=== PATIENT | female | born 1975 | race Caucasian/White ===

== ENCOUNTER 2016-09-29 18:22 | Inpatient (IN) ==
[2016-09-29] MEDS ORDERED: 0.9 % Sodium Chloride 1,000 ML IVC ONE (18:39)
[2016-09-29] MEDS ORDERED: *HR* HYDROmorphone (PF) 1 MG/ML SYRINGE IVP ONE ×2 (18:44→20:59)
[2016-09-29] MEDS ORDERED: Ondansetron 4 MG/2 ML VIAL IVP ONE ×2 (18:44→21:00)
--- NOTE | 2016-09-29 18:52 | Emergency Department Note ---
Disposition Clinical Impression: Calculus of kidney UTI (urinary tract infection) Qualifiers: Urinary tract infection type: acute pyelonephritis Qualified Code(s): N10 - Acute pyelonephritis Disposition: Admitted As Inpatient Condition: Good Time of Disposition: 21:06 Abdominal Pain HPI - General Chief Complaint: ED Abdominal Pain Stated Complaint: kidney stone Time Seen by Provider: 09/29/16 18:35 Source: patient Nursing Notes Reviewed: Yes Vital Signs Reviewed: Yes - History of Present Illness HPI Narrative: This is a 41-year-old female with a past medical history of nephrolithiasis, IV drug abuse, and a recent emergency department visit at [facility] for a renal stone. She states that yesterday she started having severe right flank pain that was sharp in nature and radiated to her right lower quadrant. Because of this, she went to the emergency Department [facility]. She states that they told her she had a stone obstructing her ureter that would require urologic intervention. She left AGAINST MEDICAL ADVICE with a prescription for Percocet, Phenergan, and ciprofloxacin. She took one ciprofloxacin in the hospital but did not get any of her other medications filled. She states that she is feeling the exact same and she felt yesterday. Pain Scale: 10 - Related Data Allergies Allergy/AdvReac Type Severity Reaction Status Date / Time Penicillins Allergy Hives Verified 09/29/16 18:25 All systems ED: reviewed and negative except as stated. Constitutional: Denies: fever, chills Cardiovascular: Denies: chest pain, palpitations Respiratory: Denies: cough, dyspnea, wheezes, hemoptysis Gastrointestinal: Reports: abdominal pain, nausea, vomiting Genitourinary: Reports: other (Decreased frequency, currently on menses). Denies: urgency, dysuria Musculoskeletal: Reports: back pain (Right flank) Integumentary: Reports: lesions (Where she picks at her skin) Neurological: Denies: headache, weakness, numbness Abdominal Pain PMH - Past Medical History Medical history: Reports: no medical history - Social History Smoking status: Current every day smoker Alcohol use: Reports: none Drug use: Reports: IV Drug Use Physical Exam This is a 41-year-old female who is pleasant but in obvious discomfort. She is holding her right flank and appears to be writhing around in pain. - General Limitations: no limitations General appearance: alert - Head Head exam: normocephalic - Eye Eye exam: Present: EOMI. Absent: scleral icterus, conjunctival injection - ENT ENT exam: normal oropharynx, mucous membranes dry - Neck Neck exam: Present: trachea midline. Absent: tenderness, meningismus - Chest Chest inspection: Present: symmetric chest wall rise. Absent: tenderness - Respiratory Respiratory exam: Present: wheezes - Cardiovascular Cardiovascular exam: Present: regular rate, normal rhythm, normal heart sounds - Abdominal Exam Abdominal exam: Present: tenderness. Absent: distention, guarding, rebound, rigidity Abdominal tenderness: Present: RLQ - Extremities Exam Extremities exam: Absent: pedal edema - Expanded Lower Extremity Exam Neurovascular/Tendon exam: Present: normal capillary refill - Back Exam Back exam: Present: CVA tenderness (R). Absent: CVA tenderness (L) - Neurological Exam Neurological exam: Present: alert, oriented X3 - Psychiatric Psychiatric exam: Present: anxious - Skin Skin exam: Present: warm, dry, intact, other (There are excoriations on her skin that appear to be from picking.) Course - Reevaluation(s) Reevaluation #1: Still having some pain, right low quadrant tenderness and right CVA tenderness. She is no longer nauseous but still has some pain. Time: 20:20 Vital Signs Temperature 98.6 F 09/29/16 18:23 Pulse Rate 96 09/29/16 18:23 Respiratory Rate 18 09/29/16 18:23 Blood Pressure 119/88 09/29/16 18:23 O2 Sat by Pulse Oximetry 100 09/29/16 18:23 Temperature 98.6 F 09/29/16 18:23 Pulse Rate 87 09/29/16 20:40 Respiratory Rate 16 09/29/16 20:40 Blood Pressure 143/58 09/29/16 20:40 O2 Sat by Pulse Oximetry 97 09/29/16 20:40 Oxygen Delivery Oxygen Delivery Room Air Abdominal Pain - MDM Narrative Medical decision making narrative: This is a 41-year-old female who reports to the emergency department with a chief complaint of having an obstructing ureteral stone as well as a UTI that was diagnosed at [facility] yesterday. On exam, she had right flank pain as well as right lower quadrant abdominal pain. The immediate concern was for an obstructing ureteral stone, pyelonephritis, ectopic , ovarian torsion, psoas abscess, appendicitis. A urinalysis, urine preg, cbc, bmp, CT of the abdomen and pelvis were obtained. Also, Dilaudid was given for analgesia, Zofran for nausea and vomiting, and IV fluids for dehydration. The CT scan obtained revealed a 1.25 cm calculus in the right renal pelvis with associated urethral urothelial thickening and small bubbles of gas within the right renal collecting system suggest inflammation or infection. Urinalysis obtained showed a lot of blood, positive leukocyte esterase and nitrites. Due to the size of the stone, and the positive urinalysis associated with signs of inflammation and infection in the right renal collecting system, I believe it is reasonable to consult urology and to get this patient admitted to the hospital. I spoke with Dr. Lazcano, the on-call urologist the phone. He thought it was reasonable to admit the patient to the hospitalist service and come by and see her in the morning. Abdomen/Pelvis CT 09/29/16 18:46 IMPRESSION: 1.25 cm calculus in the right renal pelvis. Urothelial thickening and small bubbles of gas within the right renal collecting system suggest inflammation and infection. Bubbles of gas within the right renal collecting system may also be secondary to recent urinary tract instrumentation. Clinical correlation is recommended. Cholelithiasis. The gallbladder is contracted. D/ / Deng Marie MD / Deng Marie MD Interpreting Provider: Deng Marie MD - Differential Diagnosis Differential Diagnosis: Likely: calculus of kidney - Medical Records Medical records reviewed: Yes I reviewed the patient's medical records. - Lab Data Lab results reviewed: Yes I reviewed the patient's lab results. Result diagrams: 09/29/16 19:56 09/29/16 19:56 Lab Results 09/29/16 09/29/16 09/29/16 Range/Units 19:56 19:56 20:11 WBC 9.7 (4.3-11.1) K/mcL RBC 5.05 H (3.82-4.97) M/mcL Hgb 14.2 (11.5-15.4) g/dL Hct 43.8 (35.3-44.9) % MCV 86.7 (83.0-100.0) fL MCH 28.1 (28.0-33.3) pg MCHC 32.4 (31.6-35.5) g/dL RDW 13.2 (11.5-14.5) % Plt Count 165 (140-400) K/mcL MPV 12.9 H (9.4-12.4) fL Immature Gran % 0.8 (0-4) % Seg Neutrophils % 61.4 % Lymphocytes % 23.9 % Monocytes % 8.4 % Eosinophils % 4.6 % Basophils % 0.9 % Neutrophils # 5.9 (1.6-8.9) K/mcL Lymphocytes # 2.3 (0.6-4.6) K/mcL Monocytes # 0.8 (0.0-1.3) K/mcL Eosinophils # 0.4 (0.0-0.6) K/mcL Basophils # 0.1 (0.0-0.2) K/mcL Sodium 137 (136-145) mEq/L Potassium 3.7 (3.5-4.5) mEq/L Chloride 107 (98-109) mEq/L Carbon Dioxide 22 (19-29) mEq/L BUN 20 (7-20) mg/dL Creatinine 0.74 (0.57-1.11) mg/dL Est GFR ( Amer) > 60 (> 60) Est GFR (Non-Af Amer) > 60 (> 60) BUN/Creatinine Ratio 27 H (6-26) Glucose 108 H (70-99) mg/dL Calculated Osmolality 287 (280-300) Calcium 9.7 (8.6-10.8) mg/dL Urine Color Dark Yellow (Yellow) Urine Clarity Turbid A (Clear) Urine pH 6.0 (5.0-8.0) pH Units Ur Specific [place] 1.029 H (1.010-1.025) Urine Protein >=300 H (Neg-Trace) mg/dL Urine Glucose (UA) Normal (Normal) mg/dL Urine Ketones Trace H (Negative) mg/dL Urine Blood Large H (Negative) Urine Nitrite Positive A (Negative) Urine Bilirubin Small H (Negative) Urine Urobilinogen Normal (Normal) mg/dL Ur Leukocyte Esterase Large H (Negative) Urine Microscopic RBC TNTC H (0-3) per hpf Urine Microscopic WBC TNTC H (0-3) per hpf Ur Squamous Epith Cells Many H (None-Few) per lpf Urine Bacteria Many H (None-Few) per hpf Hyaline Casts None Seen (None-Few) per lpf Urine Mucus Many H (Few) Ur Culture Indicated? YES A (NO) Urine Test (Negative) 09/29/16 Range/Units 20:11 WBC (4.3-11.1) K/mcL RBC (3.82-4.97) M/mcL Hgb (11.5-15.4) g/dL Hct (35.3-44.9) % MCV (83.0-100.0) fL MCH (28.0-33.3) pg MCHC (31.6-35.5) g/dL RDW (11.5-14.5) % Plt Count (140-400) K/mcL MPV (9.4-12.4) fL Immature Gran % (0-4) % Seg Neutrophils % % Lymphocytes % % Monocytes % % Eosinophils % % Basophils % % Neutrophils # (1.6-8.9) K/mcL Lymphocytes # (0.6-4.6) K/mcL Monocytes # (0.0-1.3) K/mcL Eosinophils # (0.0-0.6) K/mcL Basophils # (0.0-0.2) K/mcL Sodium (136-145) mEq/L Potassium (3.5-4.5) mEq/L Chloride (98-109) mEq/L Carbon Dioxide (19-29) mEq/L BUN (7-20) mg/dL Creatinine (0.57-1.11) mg/dL Est GFR ( Amer) (> 60) Est GFR (Non-Af Amer) (> 60) BUN/Creatinine Ratio (6-26) Glucose (70-99) mg/dL Calculated Osmolality (280-300) Calcium (8.6-10.8) mg/dL Urine Color (Yellow) Urine Clarity (Clear) Urine pH (5.0-8.0) pH Units Ur Specific [place] (1.010-1.025) Urine Protein (Neg-Trace) mg/dL Urine Glucose (UA) (Normal) mg/dL Urine Ketones (Negative) mg/dL Urine Blood (Negative) Urine Nitrite (Negative) Urine Bilirubin (Negative) Urine Urobilinogen (Normal) mg/dL Ur Leukocyte Esterase (Negative) Urine Microscopic RBC (0-3) per hpf Urine Microscopic WBC (0-3) per hpf Ur Squamous Epith Cells (None-Few) per lpf Urine Bacteria (None-Few) per hpf Hyaline Casts (None-Few) per lpf Urine Mucus (Few) Ur Culture Indicated? (NO) Urine Test Negative (Negative) - Radiology Data Radiology results reviewed: Yes I reviewed the patient's radiology results. Abdomen/Pelvis CT 09/29/16 18:46 IMPRESSION: 1.25 cm calculus in the right renal pelvis. Urothelial thickening and small bubbles of gas within the right renal collecting system suggest inflammation and infection. Bubbles of gas within the right renal collecting system may also be secondary to recent urinary tract instrumentation. Clinical correlation is recommended. Cholelithiasis. The gallbladder is contracted. D/ / Deng Marie MD / Deng Marie MD Interpreting Provider: Deng Marie MD Attestation Statement - Attestation Attestation: I personally interviewed and examined this patient and my medical decision- making was reviewed with the Resident Physician, Dr. Gonzalez. I agree with the documented findings, disposition and treatment plan as described except to the extent set forth below. Patient is a 41-year-old white female, history of IV drug abuse, who presents to the emergency department today with ongoing right flank pain radiating around to her right side. Patient reports that she was seen at [facility] last night and was diagnosed with a kidney stone on the right as well as an infection. Patient reports that they wanted to admit her to the hospital but due to childcare issues she had to leave AGAINST MEDICAL ADVICE and was prescribed antibiotics which she has taken one dose of ciprofloxacin. Patient returns because of gradual worsening pain in her right flank area. Patient denies any fevers or chills, no nausea vomiting, and is hemodynamically stable on arrival. I agree with patient's physical exam findings as documented. We initially requested records from [facility] in regards to her ER visit and CT findings. While waiting for those we repeated labs and imaging and administered pain control. Patient has what appears to be a large right renal stone with emphysematous changes to the right renal collecting system. She also has urinary tract infection present in the urine. Patient has had no vomiting and her blood pressures remained stable throughout her ED course. She has had no recent instrumentation and no prior kidney stones. We spoke with urology initially Dr. Alvarez is covering and agreed to consult on the patient and requested admission by the hospitalist. Case was discussed with the hospitalist on duty who accepted the patient for admission. Blood and urine cultures have been sent to patient's been started on IV Cipro here and remains hemodynamically stable. Patient is comfortable with admission and will be transferred to floor when bed is available.
[2016-09-29 20:27] LABS: Basophils # 0.1 K/mcL (0.0-0.2); Basophils % 0.9 %; Eosinophils # 0.4 K/mcL (0.0-0.6); Eosinophils % 4.6 %; Hematocrit 43.8 % (35.3-44.9); Hemoglobin 14.2 g/dL (11.5-15.4); Immature Granulocytes % 0.8 % (0-4); Lymphocytes # 2.3 K/mcL (0.6-4.6); Lymphocytes % 23.9 %; Mean Corpuscular HGB Conc 32.4 g/dL (31.6-35.5); Mean Corpuscular Hemoglobin 28.1 pg (28.0-33.3); Mean Corpuscular Volume 86.7 fL (83.0-100.0); Mean Platelet Volume 12.9 fL (9.4-12.4); Monocytes # 0.8 K/mcL (0.0-1.3); Monocytes % 8.4 %; Neutrophils # 5.9 K/mcL (1.6-8.9); Platelet Count 165 K/mcL (140-400); Red Blood Count 5.05 M/mcL (3.82-4.97); Red Cell Distribution Width 13.2 % (11.5-14.5); Segmented Neutrophils % 61.4 %
[2016-09-29 20:30] LABS: Bilirubin,Urine Small (Negative); Blood,Urine Large (Negative); Clarity,Urine Turbid (Clear); Glucose,Urine (UA) Normal (Normal); Ketones,Urine Trace mg/dL (Negative); Leukocyte Esterase,Urine Large (Negative); Nitrite,Urine Positive (Negative); Protein,Urine >=300 mg/dL (Neg-Trace); Specific Gravity,Urine 1.029 (1.010-1.025); Urobilinogen,Urine Normal (Normal)
[2016-09-29 20:32] LABS: Bacteria,Urine Many per hpf (None-Few); RBC,Urine TNTC per hpf (0-3); Squamous Epithelial Cell,Urine Many per lpf (None-Few); WBC,Urine TNTC per hpf (0-3)
[2016-09-29 20:35] LABS: Color,Urine Dark Yellow (Yellow)
[2016-09-29 20:39] LABS: BUN/Creatinine Ratio 27 (6-26); Blood Urea Nitrogen 20 mg/dL (7-20); Calcium 9.7 mg/dL (8.6-10.8); Carbon Dioxide 22 mEq/L (19-29); Chloride 107 mEq/L (98-109); Glucose 108 mg/dL (70-99); Osmolality,Calculated 287 (280-300); Potassium 3.7 mEq/L (3.5-4.5); Sodium 137 mEq/L (136-145); eGFR For African Americans > 60 (> 60); eGFR For Non-African Americans > 60 (> 60)
[2016-09-29 20:49] LABS: Hyaline Casts,Urine None Seen per lpf (None-Few); Mucus,Urine Many (Few)
[2016-09-29] MEDS ORDERED: Ketorolac 30 MG/ML VIAL IVP PRN (22:10)
[2016-09-29] MEDS ORDERED: Naloxone 0.4 MG/ML INJ IVP PRN (22:10)
[2016-09-29] MEDS ORDERED: Ondansetron 4 MG/2 ML VIAL IVP PRN (22:10)
[2016-09-29] MEDS ORDERED: *HR* Promethazine 25 MG/ML VIAL IVP PRN (22:32)
--- NOTE | 2016-09-29 22:41 | Internal Med History&Physical ---
<Shanita Best M - Last Filed: 09/29/16 22:58> Date of Encounter: 09/29/16 Time of Encounter: 22:37 Assessment and Plan (1) UTI (urinary tract infection) Current visit: Yes Status: Acute Patient presents with right flank pain. UA consistent with UTI. CT of the abdomen and pelvis shows a 1.25 cm stone in the right renal pelvis, and characteristics suggesting inflammation and infection. Cipro IV piggyback twice a day IV fluids 0.9 normal saline at [address] Walls of urology consult and will see patient tomorrow. Qualifiers: Urinary tract infection type: acute pyelonephritis Qualified Code(s): N10 - Acute pyelonephritis (2) Nausea and vomiting Current visit: Yes Status: Acute Patient had nausea and vomiting since yesterday, likely associated with her pyelonephritis. IV fluids 0.9 normal saline at 125 mL per hour Zofran and Phenergan when necessary for nausea Nothing by mouth Qualifiers: Vomiting type: unspecified Vomiting Intractability: non-intractable Qualified Code(s): R11.2 - Nausea with vomiting, unspecified (3) Flank pain Current visit: Yes Status: Acute Patient with right flank pain radiating around to her abdomen, likely secondary to obstructive stone and right renal pelvis, and pyelonephritis. Toradol and Dilaudid when necessary for pain Narcan when necessary for respiratory depression (4) Calculus of kidney Current visit: Yes Status: Acute Patient presenting with right flank pain, CT of abdomen and pelvis shows a 1.25 cm stone in the right renal pelvis. IV fluids 0.9 normal saline at [address] Walls of urology consult and will see patient tomorrow Nothing by mouth (5) DVT prophylaxis Current visit: Yes Status: Acute anti-embolic stockings. Internal Medicine - H&P: HPI Chief complaint: flank pain Admitted From: Emergency Dept Plans for Post Hospital Care: Home History of present illness: Ms. Roblero is a 41 year old female with no significant medical history presented to the emergency department today with complaints of right flank pain , nausea and vomiting. The patient was reportedly seen at [facility] yesterday first similar symptoms, and was diagnosed with a kidney stone, but left AGAINST MEDICAL ADVICE. Patient reports that she first noticed aching on the right side 4 days ago, the aching progressed and is now sharp pain radiating from her right flank around to the front her front abdomen, which she describes as severe. Nausea and vomiting started yesterday, she has a poor appetite as well. Patient denies any chest pain, palpitations, shortness of breath, headache, lightheadedness, fever, chills, or sweats. She denies any dysuria, but does describe hesitancy. Evaluation in the emergency department revealed normal white blood cell count of 9.7. CT of abdomen and pelvis showed a 1.25 cm stone in the right renal pelvis, and characteristics suggesting inflammation and infection. Her UA was grossly positive for infection. The ED spoke with Dr. Lazcano of Urology, who agrees to see patient. On exam, patient alert and oriented, in no acute distress. Lungs are clear bilaterally to auscultation heart has regular rate and rhythm. Abdomen is soft, with positive bowel sounds , diffusely tender more so on the right, and with right CVA tenderness. Past Med Surg Social Fam HX - Past Medical History Medical history: kidney stones - Past Surgical History Surgical History: non-contributory - Social History Smoking Status: Current every day smoker Smokeless Tobacco Status: No Alcohol use: none Drug use: IV Drug Use - Family History Mother Living Status: Still Living Hx Family Cancer: Yes Father Living Status: Still Living Hx Family Cardiac Disorders: Yes Internal Medicine - H&P: Meds Allergies Penicillins Allergy (Verified 09/29/16 18:25) Hives All Systems PM: A 10-system review of systems was performed and is negative for pertinent findings except as documented above in the HPI. - Constitutional Constitutional: no chills, no fever(s), no night sweats - EENT Eyes: no change in vision, no discharge, no pain, no photophobia Ears: no ear discharge, no ear pain, no tinnitus Nose, mouth and throat: no dysphagia, no nasal discharge, no neck pain, no sore throat - Cardiovascular Cardiovascular ROS IM: no chest pain, no diaphoresis, no dyspnea, no lightheadedness, no palpitations, no syncope - Respiratory Respiratory: no cough, no dyspnea, no wheezing, no excessive phlegm production - Gastrointestinal Gastrointestinal: abdominal pain, nausea, vomiting, no diarrhea, no hematemesis , no hematochezia, no melena - Genitourinary Genitourinary: difficulty urinating, urinary hesitancy, no change in urinary stream, no dysuria, no flank pain, no hematuria - Musculoskeletal Musculoskeletal ROS IM: no numbness, no tingling - Integumentary Integumentary IM: no rash, no unusual bruising - Neurological Neurological ROS: no confusion, no convulsions, no focal weakness, no numbness, no tingling, no tremor(s) - Hematologic/Lymphatic Hematologic/Lymphatic: no easy bruising - Constitutional Vitals: Temp Pulse Resp BP Pulse Ox 98.6 F 75 16 107/70 97 09/29/16 18:23 09/29/16 21:52 09/29/16 22:03 09/29/16 22:03 09/29/16 21:52 General appearance: Present: A&O X 3, pleasant, no acute distress - Head Head exam: Present: atraumatic, normocephalic - Eye Eye exam: Present: PERRL, conjuntiva pink, sclera anicteric Pupils: Present: PERRL - Neck Neck exam general surgery: Present: supple, trachea midline. Absent: lymphadenopathy - Respiratory Respiratory exam: Present: CTAB. Absent: accessory muscle use, rales, rhonchi, wheezes - Cardiovascular Cardiovascular exam: Present: RRR, +S1, +S2. Absent: diastolic murmur, gallop, rubs, systolic murmur - GI/Abdominal GI/Abdominal exam: Present: normal bowel sounds, soft, tenderness, no peritoneal signs. Absent: distended - Extremities Exam Extremities exam: Present: warm, radial pulses palpable and symetrical. Absent : calf tenderness, cyanotic, pedal edema - Back Exam Back exam: Present: CVA tenderness (R) - Neurological Exam Neurological exam: Present: CN II-XII intact, oriented X3, no focal deficits. Absent: facial droop, speech deficit - Skin Skin exam: Present: dry, intact Internal Med - H&P Results - Labs CBC & Chem 7: 09/29/16 19:56 09/29/16 19:56 Labs: All Lab Results (24 Hours) 09/29/16 09/29/16 09/29/16 Range/Units 19:56 19:56 20:11 WBC 9.7 (4.3-11.1) K/mcL RBC 5.05 H (3.82-4.97) M/mcL Hgb 14.2 (11.5-15.4) g/dL Hct 43.8 (35.3-44.9) % MCV 86.7 (83.0-100.0) fL MCH 28.1 (28.0-33.3) pg MCHC 32.4 (31.6-35.5) g/dL RDW 13.2 (11.5-14.5) % Plt Count 165 (140-400) K/mcL MPV 12.9 H (9.4-12.4) fL Immature Gran % 0.8 (0-4) % Seg Neutrophils % 61.4 % Lymphocytes % 23.9 % Monocytes % 8.4 % Eosinophils % 4.6 % Basophils % 0.9 % Neutrophils # 5.9 (1.6-8.9) K/mcL Lymphocytes # 2.3 (0.6-4.6) K/mcL Monocytes # 0.8 (0.0-1.3) K/mcL Eosinophils # 0.4 (0.0-0.6) K/mcL Basophils # 0.1 (0.0-0.2) K/mcL Sodium 137 (136-145) mEq/L Potassium 3.7 (3.5-4.5) mEq/L Chloride 107 (98-109) mEq/L Carbon Dioxide 22 (19-29) mEq/L BUN 20 (7-20) mg/dL Creatinine 0.74 (0.57-1.11) mg/dL Est GFR ( Amer) > 60 (> 60) Est GFR (Non-Af Amer) > 60 (> 60) BUN/Creatinine Ratio 27 H (6-26) Glucose 108 H (70-99) mg/dL Calculated Osmolality 287 (280-300) Calcium 9.7 (8.6-10.8) mg/dL Urine Color Dark Yellow (Yellow) Urine Clarity Turbid A (Clear) Urine pH 6.0 (5.0-8.0) pH Units Ur Specific [place] 1.029 H (1.010-1.025) Urine Protein >=300 H (Neg-Trace) mg/dL Urine Glucose (UA) Normal (Normal) mg/dL Urine Ketones Trace H (Negative) mg/dL Urine Blood Large H (Negative) Urine Nitrite Positive A (Negative) Urine Bilirubin Small H (Negative) Urine Urobilinogen Normal (Normal) mg/dL Ur Leukocyte Esterase Large H (Negative) Urine Microscopic RBC TNTC H (0-3) per hpf Urine Microscopic WBC TNTC H (0-3) per hpf Ur Squamous Epith Cells Many H (None-Few) per lpf Urine Bacteria Many H (None-Few) per hpf Hyaline Casts None Seen (None-Few) per lpf Urine Mucus Many H (Few) Ur Culture Indicated? YES A (NO) Urine Test (Negative) 09/29/16 Range/Units 20:11 WBC (4.3-11.1) K/mcL RBC (3.82-4.97) M/mcL Hgb (11.5-15.4) g/dL Hct (35.3-44.9) % MCV (83.0-100.0) fL MCH (28.0-33.3) pg MCHC (31.6-35.5) g/dL RDW (11.5-14.5) % Plt Count (140-400) K/mcL MPV (9.4-12.4) fL Immature Gran % (0-4) % Seg Neutrophils % % Lymphocytes % % Monocytes % % Eosinophils % % Basophils % % Neutrophils # (1.6-8.9) K/mcL Lymphocytes # (0.6-4.6) K/mcL Monocytes # (0.0-1.3) K/mcL Eosinophils # (0.0-0.6) K/mcL Basophils # (0.0-0.2) K/mcL Sodium (136-145) mEq/L Potassium (3.5-4.5) mEq/L Chloride (98-109) mEq/L Carbon Dioxide (19-29) mEq/L BUN (7-20) mg/dL Creatinine (0.57-1.11) mg/dL Est GFR ( Amer) (> 60) Est GFR (Non-Af Amer) (> 60) BUN/Creatinine Ratio (6-26) Glucose (70-99) mg/dL Calculated Osmolality (280-300) Calcium (8.6-10.8) mg/dL Urine Color (Yellow) Urine Clarity (Clear) Urine pH (5.0-8.0) pH Units Ur Specific [place] (1.010-1.025) Urine Protein (Neg-Trace) mg/dL Urine Glucose (UA) (Normal) mg/dL Urine Ketones (Negative) mg/dL Urine Blood (Negative) Urine Nitrite (Negative) Urine Bilirubin (Negative) Urine Urobilinogen (Normal) mg/dL Ur Leukocyte Esterase (Negative) Urine Microscopic RBC (0-3) per hpf Urine Microscopic WBC (0-3) per hpf Ur Squamous Epith Cells (None-Few) per lpf Urine Bacteria (None-Few) per hpf Hyaline Casts (None-Few) per lpf Urine Mucus (Few) Ur Culture Indicated? (NO) Urine Test Negative (Negative) - Diagnostic Studies CT scan - abdomen Additional comments: Abdomen/Pelvis CT 09/29/16 18:46 IMPRESSION: 1.25 cm calculus in the right renal pelvis. Urothelial thickening and small bubbles of gas within the right renal collecting system suggest inflammation and infection. Bubbles of gas within the right renal collecting system may also be secondary to recent urinary tract instrumentation. Clinical correlation is recommended. Cholelithiasis. The gallbladder is contracted. D/ / Deng Marie MD / Deng Marie MD Interpreting Provider: Deng Marie MD <Audie Paniagua - Last Filed: 09/30/16 01:12> Date of Encounter: 09/30/16 Internal Medicine - H&P: HPI History of present illness: Ms. Roblero is a 41 year old female All Systems PM: A 10-system review of systems was performed and is negative for pertinent findings except as documented above in the HPI. - Constitutional Vitals: Temp Pulse Resp BP Pulse Ox 98.1 F 63 15 120/75 97 09/29/16 23:17 09/29/16 23:17 09/29/16 23:17 09/29/16 23:17 09/29/16 23:17 Internal Med - H&P Results - Labs CBC & Chem 7: 09/29/16 19:56 09/29/16 19:56 - Attending Attestation I have seen and examined the patient. I reviewed the orders and the note. Patient is a 41-year-old female with past history of renal stone, anxiety and depression. She presents to the ED with right flank pain. Symptoms first started about 4 days ago. Gradually worsened. She states it is sharp pain radiating from right flank to the front of her abdomen down to her groin. Also has associated nausea and vomiting. She was initially admitted at [facility] for the same complaints, but she left AMA. Patient denies chest pain or palpitations or shortness of breath or headache. Denies fever or chills or sweats. Initial evaluation in the ED revealed 1.2 cm stone in the right renal pelvis. UA is positive for leukocyte Esterase and nitrites. Dr. Walls urology has been consulted from the ED. Patient is being admitted for renal calculus and UTI. She will be on IV fluids and IV ciprofloxacin. Patient will be kept nothing by mouth and will be on IV Zofran and IV Dilaudid when necessary. On examination patient is awake and alert. Not in any distress. She is in obvious discomfort due to the pain. Able to provide all history. Family member at bedside. She states she needs more pain medication to help with the pain. No other acute complaints. Patient states she has a history of IV drug use, last being about 10 months ago. She also states she has history of depression and anxiety and has not been on any meds for a long time. Patient has been explained about her condition and plan of care. She understood and agreed. No unanswered questions. CODE STATUS full code. Heart rate 63, blood pressure 120/75, O2 sat 97% on room air. Heart S1-S2 positive no murmurs or rubs. Lungs bilateral good air entry with no wheeze or crackles. Abdomen soft with right-sided tenderness and right CVA tenderness, no guarding. Extremities all pulses strong and regular with no edema.
[2016-09-29] MEDS: 0.9 % Sodium Chloride 1,000 ML IVC SCH (23:27)
[2016-09-30] MEDS ORDERED: *HR* Heparin 5,000 UNIT/ML VIAL SQ SCH
[2016-09-30] MEDS: Nicotine 21 MG PATCH.TD24 TD SCH ×3 (03:02→08:26)
[2016-09-30 03:44] LABS: Basophils # 0.1 K/mcL (0.0-0.2); Basophils % 0.8 %; Eosinophils # 0.4 K/mcL (0.0-0.6); Eosinophils % 4.9 %; Hematocrit 36.7 % (35.3-44.9); Immature Granulocytes % 0.5 % (0-4); Immature Platelets 9.1 % (1.1-6.1); Lymphocytes # 2.6 K/mcL (0.6-4.6); Lymphocytes % 33.2 %; Mean Corpuscular Hemoglobin 29.2 pg (28.0-33.3); Mean Corpuscular Volume 88.4 fL (83.0-100.0); Mean Platelet Volume 12.6 fL (9.4-12.4); Monocytes # 0.7 K/mcL (0.0-1.3); Monocytes % 8.4 %; Platelet Count 147 K/mcL (140-400); Red Blood Count 4.15 M/mcL (3.82-4.97); Red Cell Distribution Width 13.3 % (11.5-14.5); Segmented Neutrophils % 52.2 %
[2016-09-30 03:48] LABS: Hemoglobin 12.1 g/dL (11.5-15.4)
[2016-09-30 03:54] LABS: BUN/Creatinine Ratio 27 (6-26); Blood Urea Nitrogen 20 mg/dL (7-20); Calcium 8.4 mg/dL (8.6-10.8); Carbon Dioxide 21 mEq/L (19-29); Chloride 109 mEq/L (98-109); Glucose 81 mg/dL (70-99); Osmolality,Calculated 286 (280-300); Potassium 3.6 mEq/L (3.5-4.5); Sodium 137 mEq/L (136-145); eGFR For African Americans > 60 (> 60); eGFR For Non-African Americans > 60 (> 60)
[2016-09-30] MEDS: *HR* HYDROmorphone (PF) 1 MG/ML SYRINGE IVP PRN ×2 (04:41→08:55)
--- NOTE | 2016-09-30 08:00 | Urology - Consult Note ---
Date of Encounter: 09/30/16 Time of Encounter: 07:58 - Assessment and Plan (1) Calculus of kidney Current Visit: Yes Status: Acute Assessment and plan: Patient will be taken to the operating room today for cystoscopy and right ureteral stent placement. (2) Pyelonephritis Current Visit: Yes Status: Acute Assessment and plan: Patient's urinalysis appears to have an infection. She does not appear systemically sick at this point. Continue IV antibiotics at this time Urology CN:HPI Consult date: 09/30/16 Reason for consult Urology: Hydronephrosis Requesting physician: Audie Paniagua History of present illness: Callie is a 41-year-old female with a history of recent trip to outside hospital on Friday evening secondary to severe right-sided flank pain where she was found to have a 1.2 cm right UPJ stone with air in the collecting system. Patient left AMA from that facility after being accepted as a transfer to [place]. Patient then returned to our ER yesterday secondary to severe right- sided flank pain. CT scan was repeated which confirmed the same above findings. Patient has not had any fevers or elevation in WBC count. Patient is a former IV drug abuser with poor IV access. She states her last heroin use was 10 months ago. Past Med Surg Social Fam HX - Past Medical History Medical history: kidney stones Psychiatric history: anxiety, depression - Past Surgical History Surgical History: non-contributory - Social History Smoking Status: Current every day smoker Packs per day: 1 Smokeless Tobacco Status: No Alcohol use: none Drug use: IV Drug Use - Family History Mother Living Status: Still Living Hx Family Cancer: Yes Father Living Status: Still Living Hx Family Cardiac Disorders: Yes Medications and Allergies Allergies Penicillins Allergy (Verified 09/29/16 18:25) Hives Review of Systems - Constitutional no fever(s) - EENT Nose, mouth and throat: no dizziness - Cardiovascular no chest pain - Respiratory no cough - Gastrointestinal no abdominal pain - Musculoskeletal back pain - Integumentary no erythema - Neurological no confusion - Psychiatric no anxiety - Hematologic/Lymphatic no easy bleeding - Allergic/Immunologic no throat swelling Exam Initial Vital Signs Temp Pulse Resp BP Pulse Ox 98.6 F 96 18 119/88 100 09/29/16 18:23 09/29/16 18:23 09/29/16 18:23 09/29/16 18:23 09/29/16 18:23 - General physical appearance Present: well developed - Eyes Present: PERRL - ENT Present: normal nares - Neck Present: no masses - Respiratory Present: normal respiratory effort - Cardiovascular Cardiovascular exam IM: RRR - Abdomen Abdomen: Present: soft - Integumentary Present: no rash - Neurologic Present: normal coordination - Musculoskeletal Present: normal gait Urology Results - Labs 09/30/16 02:53 09/30/16 02:53 Abnormal lab results MPV 12.6 fL (9.4-12.4) H 09/30/16 02:53 Immature Plt Fraction 9.1 % (1.1-6.1) H 09/30/16 02:53 BUN/Creatinine Ratio 27 (6-26) H 09/30/16 02:53 Calcium 8.4 mg/dL (8.6-10.8) L 09/30/16 02:53 Urine Clarity Turbid (Clear) A 09/29/16 20:11 Ur Specific [place] 1.029 (1.010-1.025) H 09/29/16 20:11 Urine Protein >=300 mg/dL (Neg-Trace) H 09/29/16 20:11 Urine Ketones Trace mg/dL (Negative) H 09/29/16 20:11 Urine Blood Large (Negative) H 09/29/16 20:11 Urine Nitrite Positive (Negative) A 09/29/16 20:11 Urine Bilirubin Small (Negative) H 09/29/16 20:11 Ur Leukocyte Esterase Large (Negative) H 09/29/16 20:11 Urine Microscopic RBC TNTC per hpf (0-3) H 09/29/16 20:11 Urine Microscopic WBC TNTC per hpf (0-3) H 09/29/16 20:11 Ur Squamous Epith Cells Many per lpf (None-Few) H 09/29/16 20:11 Urine Bacteria Many per hpf (None-Few) H 09/29/16 20:11 Urine Mucus Many (Few) H 09/29/16 20:11 Ur Culture Indicated? YES (NO) A 09/29/16 20:11 Diabetes panel 09/30/16 Range/Units 02:53 Sodium 137 (136-145) mEq/L Potassium 3.6 (3.5-4.5) mEq/L Chloride 109 (98-109) mEq/L Carbon Dioxide 21 (19-29) mEq/L BUN 20 (7-20) mg/dL Creatinine 0.74 (0.57-1.11) mg/dL Glucose 81 (70-99) mg/dL Calcium 8.4 L (8.6-10.8) mg/dL Calcium panel 09/30/16 Range/Units 02:53 Calcium 8.4 L (8.6-10.8) mg/dL Pituitary panel 09/30/16 Range/Units 02:53 Sodium 137 (136-145) mEq/L Potassium 3.6 (3.5-4.5) mEq/L Chloride 109 (98-109) mEq/L Carbon Dioxide 21 (19-29) mEq/L BUN 20 (7-20) mg/dL Creatinine 0.74 (0.57-1.11) mg/dL Glucose 81 (70-99) mg/dL Calcium 8.4 L (8.6-10.8) mg/dL Adrenal panel 09/30/16 Range/Units 02:53 Sodium 137 (136-145) mEq/L Potassium 3.6 (3.5-4.5) mEq/L Chloride 109 (98-109) mEq/L Carbon Dioxide 21 (19-29) mEq/L BUN 20 (7-20) mg/dL Creatinine 0.74 (0.57-1.11) mg/dL Glucose 81 (70-99) mg/dL Calcium 8.4 L (8.6-10.8) mg/dL All other labs normal. - Imaging CT scan - abdomen: image reviewed CT scan - pelvis: image reviewed Consult Discharge Plan - Plan Referrals: NO,PCP [Primary Care Provider] -
[2016-09-30] MEDS: 0.9 % Sodium Chloride 1,000 ML IVC SCH (08:27)
--- NOTE | 2016-09-30 09:32 | Internal Med Progress Note ---
Date of Encounter: 09/30/16 Time of Encounter: 09:30 - Subjective Interval history: Patient was standing on fixing her hair she states that she has constant right CVA tenderness. She denies fever, chills, Liya, dyspnea, wheezing, nausea, vomiting, abdominal pain, hematuria, dysuria. She states that the pain medication is not very helpful much. - Constitutional Vitals: Temp Pulse Resp BP Pulse Ox 97.5 F L 56 18 109/73 98 09/30/16 08:37 09/30/16 04:46 09/30/16 08:37 09/30/16 08:37 09/30/16 08:37 General appearance: Present: A&O X 3, pleasant, no acute distress Exam: Gen.: Vitals noted. No acute distress. AAOx3 HEENT: PERRL/EOMI, oropharynx clear, Normocephalic, atraumatic Neck: Supple. No adenopathy. Cardiac: RRR, no murmur, +S1/S2 Pulmonary: CTA bilaterally, no wheezes, rales or rhonchi, equal chest expansion Abdomen: soft, nontender, Bowel sounds noted, no guarding Back: right CVA tenderness MSK: ROM intact, no joint swelling noted Extremities: no BLE edema, nontender calf, no cyanosis or clubbing Neuro: A&Ox3, moves all extremities, no focal deficits Psych: Appropriate mood and behavior Internal Medicine: Result - Labs CBC & Chem 7: 09/30/16 02:53 09/30/16 02:53 Labs: Short CBC 09/30/16 Range/Units 02:53 WBC 7.7 (4.3-11.1) K/mcL Hgb 12.1 D (11.5-15.4) g/dL Hct 36.7 (35.3-44.9) % Plt Count 147 (140-400) K/mcL Neutrophils # 4.0 (1.6-8.9) K/mcL BMP 09/30/16 02:53 Sodium 137 Potassium 3.6 Chloride 109 Carbon Dioxide 21 BUN 20 Creatinine 0.74 Glucose 81 Calcium 8.4 L - VTE Documentation of Mechanical Device: Graduated compression elastic hosiery Consult Discharge Plan - Plan Referrals: NO,PCP [Primary Care Provider] -
--- NOTE | 2016-09-30 09:52 | Anesthesia Evaluation PreOp ---
Date of Encounter: 09/30/16 Time of Encounter: 09:35 - Past History Planned Operation: C&P/Stent Cardiac History: Denies any Significant Hx Pulmonary History: Smoker (1ppd x 25yrs) ASSOCIATE PROFESSOR OF BIOSTATISTICS History: Denies Any Significant HX Other Medical History: Hepatic (Probable Hep C [Undiagnosed and Untreat]) Anesthesia History: No Prior Anesthetic Complications, Past Anesthesia (Removal of Tubal ) Test: Negative Alcohol Use: none Drug use: IV Drug Use (Heroin - last use reportedly "10 months ago") Medications and Allergies Allergies Penicillins Allergy (Verified 09/29/16 18:25) Hives - Meds/Allergy Pre-op Review Medications Reviewed: Yes Allergies Reviewed: Yes Beta Blockers on Current Med List: No Anesthesia Results - Labs 09/30/16 02:53 09/30/16 02:53 Laboratory Tests 09/29/16 09/29/16 09/30/16 20:11 20:11 02:53 WBC 7.7 Hgb 12.1 D Hct 36.7 Plt Count 147 Sodium Potassium Chloride BUN Est GFR (Non-Af Amer) POC Glucose Urine Nitrite Positive A Ur Leukocyte Esterase Large H Urine Microscopic RBC TNTC H Urine Microscopic WBC TNTC H Ur Squamous Epith Cells Many H Urine Bacteria Many H Urine Test Negative 09/30/16 09/30/16 02:53 04:46 WBC Hgb Hct Plt Count Sodium 137 Potassium 3.6 Chloride 109 BUN 20 Est GFR (Non-Af Amer) > 60 POC Glucose 87 Urine Nitrite Ur Leukocyte Esterase Urine Microscopic RBC Urine Microscopic WBC Ur Squamous Epith Cells Urine Bacteria Urine Test Anesthesia Exam Vital Signs Temp Pulse Resp BP Pulse Ox 09/30/16 08:37 97.5 F L 18 109/73 98 09/30/16 04:46 98.3 F 56 14 119/74 98 09/29/16 23:17 98.1 F 63 15 120/75 97 09/29/16 22:03 16 107/70 09/29/16 21:52 75 18 108/66 97 09/29/16 20:40 87 16 143/58 97 09/29/16 19:47 85 16 120/80 97 09/29/16 18:23 98.6 F 96 18 119/88 100 Intake and Output 09/29/16 09/30/16 09/30/16 23:59 07:59 15:59 Intake Total 0 / 0 0 / 0 1000 / 1000 Output Total 0 / 0 350 / 350 300 / 300 Balance 0 / 0 -350 / -350 700 / 700 Intake: IV Fluids 1000 / 1000 0.9 % Sodium Chloride 1, 1000 / 1000 000 ML @ 125 mls/hr IVC . Q8H ROSALVA Rx#:[id number] Oral 0 / 0 0 / 0 Output: Urine 0 / 0 350 / 350 300 / 300 Other: Weight 68.039 kg 66.2 kg Blood Glucose* 87 Patient Weight 09/30/16 23:59 Weight 66.2 kg Height: 5'7" Weight: 145# BMI = 23 NPO (# of Hours): MNoc - HEENT Pupil (Motor): Pupils equal, EOMI Mallampati: II Teeth: Normal Oral Opening: Greater than 3 - ASSOCIATE PROFESSOR OF BIOSTATISTICS LOC: Oriented ASSOCIATE PROFESSOR OF BIOSTATISTICS Motor: Normal RUE, Normal LUE, Normal RLE, Normal LLE, Normal Face ASSOCIATE PROFESSOR OF BIOSTATISTICS Sensory: Normal: RUE, LUE, RLE, LLE, Face - Cardiac Rhythm: Regular Murmur: None - Pulmonary Breath Sounds: bilateral Clear Respiratory Effort: Symmetrical Anesthesia Assess/Plan ASA Score: 3 Anes Supervising Prov Stmt: Pt seen/evaluated, R&B Discussed, questions answered and consent obtained. Valeria Ortiz MD
[2016-09-30] MEDS ORDERED: Gabapentin 300 MG CAPSULE ONE (09:57)
[2016-09-30] MEDS ORDERED: Acetaminophen IV 1,000 MG/100 ML INFUS..BTL ONE (09:58)
[2016-09-30] MEDS ORDERED: Famotidine 20 MG/2 ML VIAL ONE (09:59)
[2016-09-30] MEDS ORDERED: Metoclopramide 10 MG/2 ML VIAL ONE (10:00)
[2016-09-30] MEDS ORDERED: *HR* FentaNYL (PF) 100 MCG/2 ML VIAL ONE (10:17)
[2016-09-30] MEDS ORDERED: *HR* Propofol 200 MG/20 ML VIAL IVP ONE (10:17)
[2016-09-30] MEDS ORDERED: Lidocaine -MPF 2% 2 ML VIAL ONE (10:17)
[2016-09-30] MEDS ORDERED: *HR* Midazolam HCl 2 MG/2 ML VIAL ONE (10:17)
[2016-09-30] MEDS ORDERED: Ondansetron 4 MG/2 ML VIAL ONE (10:18)
[2016-09-30] MEDS ORDERED: Dexamethasone 4 MG/ML VIAL ONE (10:18)
--- NOTE | 2016-09-30 10:28 | Operative Note ---
Date of procedure: 09/30/16 Pre-op diagnosis: right upj stone Post-op diagnosis: same Procedure: Cystoscopy and right 6x26cm ureteral stent placement. Anesthesia: GETA Surgeon: Bernardino Walls Condition: stable Disposition: PACU Procedure in Detail: The patient was prepped and draped in normal sterile fashion after being placed in the lithotomy position. I then inserted the cystoscope into the patient's bladder. I then cannulated the right ureter using a zip wire. This was advanced to the kidney using fluoroscopy. I then placed a 6 x 26 cm ureteral stent with good curl seen in the kidney and the bladder. The bladder was drained and the procedure was ended. Patient will need to continue with 2 weeks of Cipro. She will need to follow up with me in 2 weeks for discussion of definitive management of right UPJ stone.
--- NOTE | 2016-09-30 11:14 | Anesthesia Evaluation Post Op ---
Date of Encounter: 09/30/16 Time of Encounter: 11:13 - Vital Signs Vital Signs: Vital Signs/O2 Sat, Most Current Temp Pulse Resp BP Pulse Ox 97.7 F 44 16 122/92 98 09/30/16 11:11 09/30/16 11:11 09/30/16 11:11 09/30/16 11:11 09/30/16 11:11 - Lungs Lungs: Clear Ascult./Percussion - Airway Airway: Non-obstructed - Cardiovascular Regular Rate - Mental Status Mental Status: Alert & Oriented, Answers Appropriately - Pain Pain Scale: 8 Pain Scale used: Numeric (1 - 10) - Nausea Vomiting Nausea Vomiting: Not Present - Hydration Hydration: Ice chips, Has not voided - Discharge PostOp Status: Transfer Patient to floor
[2016-09-30] MEDS ORDERED: 0.9 % Sodium Chloride 1,000 ML IVC SCH (11:25)
[2016-09-30] MEDS ORDERED: *HR* HYDROmorphone (PF) 1 MG/ML SYRINGE IVP PRN (11:25)
[2016-09-30] MEDS ORDERED: *HR* Promethazine 25 MG/ML VIAL IVP PRN (11:25)
[2016-09-30] MEDS ORDERED: Naloxone 0.4 MG/ML INJ IVP PRN (11:25)
[2016-09-30] MEDS ORDERED: Ondansetron 4 MG/2 ML VIAL IVP PRN (11:25)
[2016-09-30] MEDS ORDERED: Ketorolac 30 MG/ML VIAL IVP PRN (11:25)
--- NOTE | 2016-09-30 15:10 | Discharge Summary ---
<Zarina Lugo - Last Filed: 09/30/16 15:08> Date of Encounter: 09/30/16 Time of Encounter: 15:08 - Discharge Diagnosis (1) Calculus of kidney Priority: Primary Status: Acute Comments: CT of the abdomen and pelvis shows a 1.25 cm stone in the right renal pelvis, and characteristics suggesting inflammation and infection. Dr. Walls of urology was consulted and scheduled to take patient to OR. s/p: cystoscopy and right ureteral stent placement today Patient tolerated procedure well. She has been able to eat, drink, urinate, have a bowel movement. She denies dysuria. Patient is stable, afebrile. Patient only complains of right flank pain that is still present but improved. -She will follow-up with urology in 2 weeks for discussion of definitive management of right UPJ. -Patient was not given a prescription for pain medication since she had already received a prescription for Percocet and Phenergan from her recent visit to [facility] ED. -She will continue with 2 weeks of Cipro (2) Pyelonephritis Priority: Secondary Status: Acute Comments: Urinalysis demonstrates an infection- GNR patient labs were monitored. Patient is not systematically ill. Patient is a febrile, stable. Patient had been on Cipro IV, fluids, Zofran and Phenergan for nausea. -Patient will be discharged on 2 weeks of Cipro (3) UTI (urinary tract infection) Priority: Secondary Status: Acute Comments: Urinalysis demonstrates an infection- GNR Patient had been on Cipro IV, fluids, Zofran and Phenergan for nausea. -Patient will be discharged on 2 weeks of Cipro Qualifiers: Urinary tract infection type: acute pyelonephritis Qualified Code(s): N10 - Acute pyelonephritis (4) DVT prophylaxis Priority: Secondary Status: Acute Comments: Anti-embolic stockings - Discharge Medications Prescriptions: Ciprofloxacin [Cipro] 500 mg PO Q12HR #14 tablet Ibuprofen 800 mg PO BID #10 tablet Home Medications: Ciprofloxacin [Cipro] 500 mg PO Q12HR #14 tablet 09/30/16 [Rx] Ibuprofen 800 mg PO BID #10 tablet 09/30/16 [Rx] Allergies/Adverse Reactions: Allergies Penicillins Allergy (Verified 09/29/16 18:25) Hives Procedures/tests Complete & Pending: Procedures Performed prior 72 hours Category Date Time Status ECG 12 lead ECG [ECG] Routine Y 09/30/16 04:57 Completed EKG [ECG 12 lead ECG] [ECG] Routine Y 09/30/16 01:05 Completed Date of admission: 09/29/16 22:10 Primary care physician: PCP NO Consults: 09/29/16 22:14 Consult to Urology [CONS] Routine Consulting Provider: [facility] [place] Reason for Consult: 41F with pyelonephritis, 1.25cm stone in right renal pelvis. Call Completed: Yes 09/29/16 23:34 Consult to Nutrition [CONS] Routine Comment: Consulting Provider: NUTRITION Reason for Dietary Consult: MST Score Discharging clinician: Zarina Lugo - Patient Status Disposition: Home, Self-Care Condition: Good Functional capacity at discharge: independent ambulation Overall status at discharge: patient is progressing back to baseline - Discharge Instructions Follow Up With: Bernardino Walls MD [Partnered Physician] - 10/14/16 3:00 pm - Diet and Activity Diet: advance to your usual diet Interval History: Ms. Roblero is a 41 year old female with no significant medical history who presented to the emergency department with complaints of right flank pain, nausea and vomiting. The patient had reportedly been seen at [facility] Friday evening first with similar symptoms and was diagnosed with a kidney stone, but left AGAINST MEDICAL ADVICE when they wanted to transfer her to [place] due to a calculus the right kidney. The patient was found to have pyelonephritis and was given fluids and Cipro. Urinalysis demonstrated a UTI. Urine culture revealed GNR. CT of abdomen revealed a 1.25 cm calculus in the right renal pelvis. Urology was consulted and scheduled her for the OR the next day. Cystoscopy and a right ureteral stent was placed. The patient tolerated the procedure well. She is to follow up with urology in 2 weeks to discuss definitive management of right UPJ stone. The patient is to continue with 2 weeks of Cipro. The patient was not given a prescription for pain medication since she had already received a prescription for Percocet and Phenergan from her recent visit to [facility] ED. the patient stated that she does still have some right flank tenderness but it is "better than it was earlier". She then requested something additional for the pain and she was prescribed ibuprofen which has anti-inflammatory properties that would treat the patient's pain better than narcotics. The patient denies fever, chills, confusion, chest pain, dyspnea, nausea, vomiting, abdominal pain, dysuria. The patient is alert and oriented x3 with full capacity. The patient was instructed with urology follow up and continuation of the antibiotics. She stated a clear understanding of the treatment plan. She was told to return to the ED and she should worsen. Hospital course: Ms. Roblero is a 41 year old female - Time Spent with Patient Total time spent providing and/or coordinating discharge services: - Constitutional Vitals: Temp Pulse Resp BP Pulse Ox 97.6 F 48 18 122/92 99 09/30/16 11:54 09/30/16 11:54 09/30/16 11:54 09/30/16 11:11 09/30/16 11:54 General appearance: Present: A&O X 3, pleasant, no acute distress Exam: Gen.: Vitals noted. No acute distress. AAOx3 HEENT: PERRL/EOMI, oropharynx clear, Normocephalic, atraumatic Neck: Supple. No adenopathy. Cardiac: RRR, no murmur, +S1/S2 Pulmonary: CTA bilaterally, no wheezes, rales or rhonchi, equal chest expansion Abdomen: soft, nontender, Bowel sounds noted, no guarding Back: mild right CVA tenderness MSK: ROM intact, no joint swelling noted Extremities: no BLE edema, nontender calf, no cyanosis or clubbing Neuro: A&Ox3, moves all extremities, no focal deficits Psych: Appropriate mood and behavior - VTE Documentation of Mechanical Device: Graduated compression elastic hosiery <Parag Benavidez P - Last Filed: 09/30/16 18:01> Date of Encounter: 09/30/16 Procedures/tests Complete & Pending: Procedures Performed prior 72 hours Category Date Time Status ECG 12 lead ECG [ECG] Routine Y 09/30/16 04:57 Completed EKG [ECG 12 lead ECG] [ECG] Routine Y 09/30/16 01:05 Completed Date of admission: 09/29/16 22:10 Primary care physician: PCP NO Consults: 09/29/16 22:14 Consult to Urology [CONS] Routine Consulting Provider: [facility] [place] Reason for Consult: 41F with pyelonephritis, 1.25cm stone in right renal pelvis. Call Completed: Yes 09/29/16 23:34 Consult to Nutrition [CONS] Routine Comment: Consulting Provider: NUTRITION Reason for Dietary Consult: MST Score Hospital course: Ms. Roblero is a 41 year old female - Time Spent with Patient Total time spent providing and/or coordinating discharge services: - Constitutional Vitals: Temp Pulse Resp BP Pulse Ox 98.6 F 68 18 132/86 99 09/30/16 14:35 09/30/16 14:35 09/30/16 14:35 09/30/16 14:35 09/30/16 13:35 - Attending Attestation I examined this patient and my medical decision-making was reviewed with the Resident Physician. I agree with the documented findings, disposition and treatment plan as described except to the extent set forth below.
[2016-09-30 16:27] VITALS: BP 132/86
--- NOTE | 2016-09-30 16:27 | Electrocardiograph Report ---
[address] [address] Test Date: 2016-09-30 Pat Name: Callie Roblero Department: 115 Room: 3A63 Gender: F Director Of Planning: NIVIA : 1975 Requested By: Carlita Roche Order Number: [id number] Reading MD: Mark Church MD Measurements Intervals [place] Rate: 60 P: 67 MT: 143 QRS: 25 QRSD: 90 T: 35 QT: 456 QTc: 457 Interpretive Statements SINUS RHYTHM WITH OCCASIONAL VENTRICULAR PREMATURE COMPLEXES Electronically Signed On 09-30-2016 16:26:02 EDT by Mark Church MD
--- NOTE | 2016-09-30 16:27 | Electrocardiograph Report ---
[address] [address] Test Date: 2016-09-30 Pat Name: Callie Roblero Department: 115 Room: 3A63 Gender: F Weaving Machine Operator: NIVIA : 1975 Requested By: Audie Paniagua Order Number: [id number] Reading MD: Mark Church MD Measurements Intervals [place] Rate: 56 P: 61 HI: 147 QRS: 24 QRSD: 90 T: 32 QT: 456 QTc: 449 Interpretive Statements SINUS BRADYCARDIA EARLY REPOLARIZATION Electronically Signed On 09-30-2016 16:26:21 EDT by Mark Church MD
[2016-10-01] MEDS ORDERED: Nicotine 21 MG PATCH.TD24 TD SCH (09:00)
--- NOTE | 2016-10-04 17:18 | Event Note ---
Date of Encounter: 10/04/16 Time of Encounter: 17:18 -Ms. Roblero was discharged on 09/30/2016 with ciprofloxacin for 2 weeks. She was instructed to follow up with Urology Dr. Walls in 2 weeks. -Urinalysis resulted the next day and demonstrates an infection- GNR that was resistant to Cipro. -The patient was called that next day after discharge to inform her that a new antibiotic was needed. However, the phone number listed is her friend's number whom she is currently living with. I gave her friend my personal work phone number so that the patient could call me. I never received a phone call back. I tried calling her several more times over the week with out an answer. I enlisted the help of the charge nurse whom tried contacting her as well, and whom could not reach her either. She has no PCP. I sent a new antibiotic that would cover the infection to the pharmacy that is in her profile ([facility]).
== END 2016-09-30 16:25 | disposition home or self-care (01) | DRG 465 ==
LOC: 3ANU 18:22 → EMEROO 18:22 → 3ANU 23:00
PROVIDERS: ADMIT Nurse Practitioner Family; ATTEND Internal Medicine